=== PATIENT | female | born 1935 | race Caucasian/White ===

== ENCOUNTER 2017-06-27 05:02 | Inpatient (IN) | payer MEDICARE, OTHER ==
[~2017-06-27] VITALS: Ht 157.5 cm; Wt 86.8 kg
--- NOTE | ~2017-06-27 | HP ---
History And Physical [facility] [address] [place]. [address] NAME: MELVA MATOS : 35 STATUS : ADM IN [facility]#: [id number] AGE: 82 ADM/REG DATE : 06/27/17 MR#: [id number] REPORT SERV DATE: 06/27/17 DICTATED BY: GENESIS SHARMA DATE: 06/27/17 REPORT STATUS : Draft TRANSCRIBED BY: JAGDEEP DATE: 06/27/17 DATE OF ADMISSION: 06/27/2017 REASON FOR ADMISSION: COPD acute exacerbation and congestive heart failure, not relieved at [facility] on discharge in the last three to four days. HISTORY: This is an 82-year-old white female, who has been in this hospital a long time, was in [facility]. Family was dissatisfied with care at that facility and brought her to [facility] with complaint of pain in her mid and lower back early this morning. She also had some anterior abdominal pain at that time. She is followed by Dr. Harlan Hayes for an abdominal aortic aneurysm. Her blood pressure on arrival was 209/152. Clonidine was given and the pain has abated. She does have a history of shortness of breath as well and had congestive heart failure in the past. She stopped smoking cigarettes back in 1969, but she has had some problems with pulmonary edema since that time. She has had a decline in her performance scale is now become bedridden over the last six months or so. No longer ambulates, has a bedside commode. She has been hospitalized more than three times in the last six months for the congestive heart failure, COPD, or other problems related to this. She does have chronic pain in her lower extremities from her diabetic neuropathy and complains that the steroids make her blood sugar go up over 200. She comes to the emergency room because of the back pain and the abdominal pain. CT scan of the abdomen was negative and does not actually show an aneurysm there now. She did have malignant hypertension with blood pressure of 209/152 and had chest pain, back pain, and shortness of breath. The chest x-ray showed cardiomegaly, poor visualization of the retrocardiac region, mild basilar atelectasis, though the BNP was elevated 284.5. An arterial blood gas showed hypercarbia with a PaCO2 of 56, that appeared to be chronic. The Hospitalist Service consulted for admission to the hospital for sorting out of these multiple medical problems. PAST MEDICAL HISTORY: ALLERGIES: SHE HAS AN ALLERGY LIST LONG HER MEDICATION LIST. HER DAUGHTER SAYS SHE IS INTOLERANT OF MOST MEDICATIONS. WE DISCUSSED PAIN MEDICATION AND MORPHINE AND OXYCODONE HAVE CAUSED PROBLEMS IN THE PAST. FENTANYL PATCH IS NOT LISTED, BUT ALSO CAUSED SOME CONFUSION. SHE HAS BEEN ABLE TO TAKE SOME DILAUDID IN THE PAST, BUT MEPERIDINE, TORADOL, DARVOCET, AND OTHERS HAVE CAUSED PROBLEMS. SHE RELATES INTOLERANCE TO PENICILLINS WITH AMOXICILLIN CAUSING CHEST PAIN AND DIZZINESS, KEFLEX CAUSING SHORTNESS OF BREATH. AMPICILLIN CAUSING CHEST PAIN AND DIZZINESS. VANCOMYCIN CAUSE BODY REJECTION. CORTISONE CAUSED HER TO BE DISORIENTED, THOUGH SHE IS TOLERATING METHYLPREDNISOLONE DOSEPAK AT HOME NOW. History And Physical [address] [place]. [address] NAME: MELVA MATOS : 35 STATUS : ADM IN [facility]#: [id number] AGE: 82 ADM/REG DATE : 06/27/17 MR#: [id number] REPORT SERV DATE: 06/27/17 DICTATED BY: GENESIS SHARMA DATE: 06/27/17 REPORT STATUS : Draft TRANSCRIBED BY: JAGDEEP DATE: 06/27/17 MEDICATIONS: She is taking are Tylenol 350 mg one or two p.o. q.i.d. p.r.n., though her daughter says she can only tolerate small amounts and use takes that for fever not for pain; DuoNeb every six hours and p.r.n.; Eliquis 5 mg p.o. b.i.d. because of atrial fibrillation that is recurrent and Dr. Granados has been shocking her for this; Omnicef 300 mg b.i.d. for two days with therapy now have been completed in spite of her Keflex intolerance; clonidine 0.1 mg five times a day as needed for elevated blood pressure systolic over 169; diazepam 5 mg four times a day as needed for anxiety, she has been taking at least two a day since 1959; furosemide 20 to 40 mg p.o. b.i.d. p.r.n. swelling; Humalog by sliding scale; methylprednisolone 4 mg Dosepak continued to treat; metoprolol 50 mg p.o. b.i.d.; pantoprazole 40 mg p.o. daily; potassium 10 mEq p.o. b.i.d.; Crestor 20 mg p.o. at bedtime; and Ambien 5 mg at bedtime as needed as needed. SOCIAL HISTORY: She is . She was initially to an [employer] officer lived in [place], after a while, subsequently to a preacher, she for 50 years and is now , he was in [employer]. 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 She presently attends the [employer]. She is born in [place] and now lives in [place]. FAMILY HISTORY: She has five children, two of whom are with [place], boys are . She has a daughter who is a heavy cigarette user, she had cancer, was personal friends with Jason Hernandez. Has had heart disease and chronic kidney disease and continues to smoke cigarettes. She is the spokeswoman at the bedside with two other sisters, who live out of town. She had one brother, three sisters diabetes, heart disease, and lung disease ran in the family. REVIEW OF SYSTEMS: She has had no headache, eye pain, double vision. She has had no stroke. She has had no nausea, vomiting, diarrhea. She does have the abdominal pain, back pain, leg pain, and has had tremendous swelling of her lower extremities over the last several weeks. Much of her edema was removed during the hospitalization at [facility]. She complaint that she never saw doctor while she is in the hospital at [facility]. She has had no fits, seizures, convulsions, unilateral weakness, melena, hematemesis, fever, chills, or night sweats. She did have a chest pain that was a burning like pain radiating through to the back. The remainder of the review of systems is negative. PHYSICAL EXAMINATION: GENERAL: Morbidly obese white female, in no acute distress. VITAL SIGNS: Blood pressure initially was 209/159 and down to 54/84 with a heart rate of 88, respiratory rate 18, afebrile. HEENT: EOMI. Sclerae clear. Conjunctivae pink. NECK: No bruit without any JVD. CHEST: Rales at both bases, [facility] up bilaterally. HEART: Regular S1, S2 without murmur, gallop, or click. BREASTS: Grossly without mass. ABDOMEN: Grossly obese, nontender. Bowel sounds positive. There is no organomegaly. No landmarks can be felt. History And Physical [address] [place]. [address] NAME: MELVA MATOS : 35 STATUS : ADM IN [facility]#: [id number] AGE: 82 ADM/REG DATE : 06/27/17 MR#: [id number] REPORT SERV DATE: 06/27/17 DICTATED BY: GENESIS SHARMA DATE: 06/27/17 REPORT STATUS : Draft TRANSCRIBED BY: JAGDEEP DATE: 06/27/17 EXTREMITIES: Have trace edema. I do feel distal pulses, dorsalis pedis, and posterior tibial. NEUROLOGIC: She is anesthetic in her feet and feels like she can feel touching through shoes to the level of the knee. Motor is intact, but she has wasting of her muscles. EXTREMITIES: Knee joints are hypotrophic with some crepitus. No DTRs are listed with knees on either side. PSYCHIATRIC: She is alert, oriented to person, place, and time. She is calm and complacent with normal affect. SKIN: With ecchymoses of the arms and legs from previous phlebotomies sticks from hospitalization. LYMPHATICS: There is no adenopathy palpable. LABORATORY DATA: Arterial blood gas 7.39, 36, and 131 was done on 32% FiO2. White count 8.8, hemoglobin 12.1, hematocrit 39.3, platelets were 183, MCV was 87. Lactate level 0.8. The comprehensive metabolic profile showed a sodium 137, potassium 4.7, creatinine was 0.93, BUN 30, CO2 of 32, glucose was 227. Albumin was 2.9. Troponin 0.05. Lipase 277. BNP was 284.5. CT scan of the abdomen and pelvis showed cardiomegaly, basilar atelectasis, small pleural effusions, question pneumonia, diverticulosis, prior hysterectomy. No evidence of intestinal obstruction. ASSESSMENT: 1. Congestive heart failure, acute exacerbation. She does have rales bilaterally. Chest x-ray does not show pulmonary edema. However, her BNP is elevated slightly. I suspect increasing Lasix dose would be reasonable at this point and continue to watch. 2. Chronic obstructive pulmonary disease with acute exacerbation. She does have some hypercarbic respiratory failure likely chronic, exacerbated by the congestive heart failure early this morning. 3. Presence of permanent pacemaker. 4. Possible atherosclerotic cardiovascular disease. We will repeat the troponin level. 5. 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 6. Said to have an abdominal aortic aneurysm. The CT scan of the abdomen does not show this, I want to consult Dr. Hayes to help sort this out and is suggestion for treatment of the family had understood. 7. Obesity. 8. Ecchymosis. 9. Chronic anxiety since 1959 on Valium. 10.Multiple "allergies.". 11.Hypertension, malignant. I believe we will need to add medication rather than just taking a p.r.n. clonidine, though she is allergic or intolerant to so many medications or maybe just anxious about potential side effects. She is not able to take many medications. 12.Neuropathy. She is having some pain now and because of the statistical evidence of 50% one year mortality with more 3 hospitalizations last six months. She may qualify for hospice. I discussed end-of-life care with the family. She wants to be fully coated and placed on artificial life support if necessary even is declining state. She has had a drop in her physical performance over the last six months, now been bedridden nearly totally with bedside commode. Any consideration for knee joint placement for History And Physical [address] [place]. 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 With the decline in performance some evidence of protein calorie malnutrition with an albumin down at 2.9. Her chronic conditions of congestive heart failure, COPD, and malignant hypertension. These together would likely give her life expectancy less than or equal to six months and qualify for hospice care at home. Daughter says that she will speak to her sister's about this and considering this I will go ahead and feel to more comfort measures that have been attended in the past and start her on some oral Dilaudid to half a dose 2 mg every six hours p.r.n. If she has not tolerated a quarter of a pill at 1 mg may be sufficient to keep the patient comfortable and allow hospice to administer to her in the home. I will defer the final decision on this two. The primary care physician, Dr. Montes at [facility] and two physicians who have known her longer in the past such as Dr. Hayes and Dr. Casper Granados, and Dr. Wolfgang Fisher. DB/MODL Genesis Sharma M.D. / [id number] CC: Dr. Angel Montes,Mela Manjarrez M.D. Michael C Allan, M.D.
--- NOTE | ~2017-06-27 | DS ---
Discharge Summary [facility] [address] [place]. [address] NAME: MELVA MATOS : 35 STATUS : DIS IN PAT#: [id number] AGE: 82 ADM/REG DATE : 06/27/17 MR#: [id number] REPORT SERV DATE: 06/29/17 DICTATED BY: HUGO MCCAULEY DATE: 06/29/17 REPORT STATUS : Draft TRANSCRIBED BY: MODL DATE: 06/29/17 ADMISSION DATE: 06/27/2017 DISCHARGE DATE: 06/29/2017 DISCHARGE DIAGNOSES: 1. Acute chronic obstructive pulmonary disease exacerbation. 2. Generalized weakness. 3. Initial suspicion for systolic and diastolic congestive heart failure exacerbation, ruled out. 4. Hypertension. 5. Generalized abdominal and chest pains. CONSULTANTS: None. PROCEDURES: None. HOSPITAL COURSE: This is an 82-year-old lady with history of oxygen-dependent COPD, who was admitted to the hospital with COPD and CHF exacerbation. For details, please refer to excellent H and P dictated by Dr. Aaron Griffith. In summary, the patient was admitted and was treated with Lasix diuresis as well as steroids and oxygen support and bronchodilator therapies. By the second day of the hospital stay, the patient was actually back to back to 3 liters of oxygen requirement, which is her home dose. The patient was still complaining of significant fatigue and shortness of breath. By the third day of the hospital stay, the patient's breathing had returned to her baseline. The patient was actually requiring only 2 liters of oxygen to maintain adequate oxygen saturations, which is better than her baseline. In the meantime, the patient's echocardiogram did come back and the echocardiogram showed a normal ejection fraction of 55% with only mild diastolic dysfunction. Based on how she responded to Lasix, which she has not put out all that much, it is likely that the patient suffered more from COPD exacerbation and not a congestive heart failure exacerbation. Of note, the patient was seen to be extremely weak and frail. The patient was recommended getting evaluated for possible [facility]dc facility transfer, however, the patient was adamantly against it. The patient is a retired nurse and she was not open to going anywhere, but home. The patient was still open to home health and she was actually open to consulting with hospice if she did not do well at home. I felt that that was a reasonable decision. The patient is now being discharged home with home health and close outpatient followup plans. DISPOSITION: Home with home health. FOLLOWUP: Please follow up with PCP in the next one to two weeks. DISCHARGE MEDICATIONS: No changes except for a Medrol Dosepak. Also, note as the patient was running low on her prescriptions, the patient was given prescriptions for all of her existing home medications. The patient is in between PCPs and she was also given a list of PCPs that she can follow up with. Discharge Summary [facility] [address] [place]. [address] NAME: MELVA MATOS : 35 STATUS : DIS IN PAT#: [id number] AGE: 82 ADM/REG DATE : 06/27/17 MR#: [id number] REPORT SERV DATE: 06/29/17 DICTATED BY: HUGO CMCAULEY DATE: 06/29/17 REPORT STATUS : Draft TRANSCRIBED BY: JAGDEEP DATE: 06/29/17 A total of 45 minutes spent in coordinating this patient's discharge today. HANK/JAGDEEP Hugo Mccauley MD / [id number] CC: MD ROSMERY Rapp JUSTIN AARON
[~2017-06-27 05:02] MED LIST: CAT1 PO; CLONIDINE; ELIQUIS 5 MG TAB5 MG PO; HUMALOG SC; LOP50 PO; METOPROLOL; NITROPATCH; PROTONIX; PROTONIX PO; T PO; V5 PO; VALIUM
[2017-06-27 05:42] LABS: ALLENS TEST Pos; BE (BASE EXCESS) 6.7 MEQ/L (0 +/- 2.5); CARBOXYHEMOGLOBIN 1.1 % (0-3); DEVICE NC; HCO3 (ACTUAL BICARBONATE) 33.2 MEQ/L (23-27); HEMOBLOGIN CONTENT 12.7 G/DL (12-16); INSTRUMENT SERIAL # 8087; METHEMOGLOBIN 0.2 % (0-3); O2 CONTENT 17.5 VOL% (18-24); OPERATOR ID 33449; PCO2 (CO2 TENSION) 56 MMHG (35-45); PO2 (O2 TENSION) 131 MMHG (79-93); SAMPLE Arterial; pH 7.39 (7.37-7.43)
[2017-06-27 06:58] LABS: BASOPHILS 0.2 %; BASOPHILS ABSOLUTE 0.02 10/3/uL (0.0-0.16); EOSINOPHILS 1.5 %; EOSINOPHILS ABSOLUTE 0.13 10/3/uL (0.0-0.53); HEMATOCRIT 39.3 % (36.0-48.0); HEMOGLOBIN 12.1 g/dL (12.0-16.0); IMMATURE GRANULOCYTES 0.2 %; IMMATURE GRANULOCYTES ABSOLUTE 0.02 10/3/uL (0.0-0.11); LYMPHOCYTES 19.3 %; MEAN CORPUSCULAR VOLUME 87.3 fL (80-100); MEAN PLATELET VOLUME 10.7 fL (9.2-13.0); MONOCYTES ABSOLUTE 0.97 10/3/uL (0.21-1.20); NEUTROPHILS 67.8 %; NEUTROPHILS ABSOLUTE 5.98 10/3/uL (2.02-8.40); PLATELET COUNT 183 10/3/uL (150-400); RBC DISTRIBUTION WIDTH 13.6 % (12.0-16.0); WHITE BLOOD CELLS 8.8 10/3/uL (4.5-10.5)
[2017-06-27 07:01] LABS: MANUAL DIFF NO %; MEAN CORPUS HGB CONC 30.8 g/dL (32.0-36.0); MEAN CORPUSCULAR HEMOGLOB 26.9 pg (26.0-34.0)
[2017-06-27 07:17] LABS: A/G RATIO 0.7 (0.7-1.9); ALBUMIN 2.9 G/DL (3.5-5.0); ALKALINE PHOSPHATASE 83 U/L (45-117); CALCIUM, SERUM 8.6 MG/DL (8.5-10.4); CHLORIDE, SERUM 99 MMOL/L (96-112); CREATININE 0.93 MG/DL (0.55-1.02); DIRECT BILIRUBIN 0.2 MG/DL (0.0-0.4); GFR AFRICAN AMERICAN 66 ML/MIN (>=60); GFR NON AFRICAN AMERICAN 57 ML/MIN (>=60); GLOBULIN 4.1 G/DL (2.5-4.1); INDIRECT BILIRUBIN(NOT ORDER) 0.5 MG/DL (0.1-0.9); POTASSIUM, SERUM 4.1 MMOL/L (3.5-5.3); SGOT(AST) 44 U/L (5-40); SGPT(ALT) 39 U/L (5-65); SODIUM, SERUM 137 MMOL/L (135-148); TOTAL BILIRUBIN 0.7 MG/DL (0-1.2)
[2017-06-27 07:18] LABS: BUN (BLOOD UREA NITROGEN) 30 MG/DL (6-23); CO2 (CARBON DIOXIDE) 32 MMOL/L (24-34); GLUCOSE, SERUM 227 MG/DL (60-99); TROPONIN I 0.05 NG/ML (<0.05)
[2017-06-27 07:18] LABS: LACTATE 0.8 MMOL/L (0.3-2.4)
[2017-06-27] MEDS ORDERED: DUONEB INH (07:41)
[2017-06-27] MEDS ORDERED: OMNICEF300 PO (07:41)
[2017-06-27] MEDS ORDERED: MEDROLPAK4 PO (07:42)
[2017-06-27] MEDS ORDERED: L20 PO (07:43)
[2017-06-27] MEDS ORDERED: CAT1 PO (07:44)
[2017-06-27] MEDS ORDERED: V5 PO (07:46)
[2017-06-27] MEDS ORDERED: CRESTOR20 MG PO (07:48)
[2017-06-27] MEDS ORDERED: ELIQUIS 5 MG TAB5 MG PO (07:48)
[2017-06-27] MEDS ORDERED: AMB5 PO (07:48)
[2017-06-27] MEDS ORDERED: LOP50 PO (07:48)
[2017-06-27] MEDS ORDERED: PROTONIX PO (07:49)
[2017-06-27] MEDS ORDERED: KLOR-CON 1010 MEQ PO (07:49)
[2017-06-27] MEDS ORDERED: HUMALOGPEN SC (07:50)
[2017-06-27] MEDS ORDERED: T PO (07:51)
[2017-06-28 08:49] LABS: CHLORIDE, SERUM 95 MMOL/L (96-112); CO2 (CARBON DIOXIDE) 34 MMOL/L (24-34); CREATININE 0.88 MG/DL (0.55-1.02); GFR AFRICAN AMERICAN 71 ML/MIN (>=60); GFR NON AFRICAN AMERICAN 61 ML/MIN (>=60); GLUCOSE, SERUM 249 MG/DL (60-99); SODIUM, SERUM 133 MMOL/L (135-148); TROPONIN I 0.04 NG/ML (<0.05)
[2017-06-28 08:52] LABS: BUN (BLOOD UREA NITROGEN) 26 MG/DL (6-23)
[2017-06-28 08:53] LABS: BASOPHILS 0 %; EOSINOPHILS 0 %; HEMATOCRIT 36.6 % (36.0-48.0); HEMOGLOBIN 11.6 g/dL (12.0-16.0); IMMATURE GRANULOCYTES 0.3 %; IMMATURE GRANULOCYTES ABSOLUTE 0.03 10/3/uL (0.0-0.11); LYMPHOCYTES 12.8 %; MEAN CORPUS HGB CONC 31.7 g/dL (32.0-36.0); MEAN CORPUSCULAR HEMOGLOB 26.7 pg (26.0-34.0); MEAN PLATELET VOLUME 11.3 fL (9.2-13.0); MONOCYTES 7.6 %; MONOCYTES ABSOLUTE 0.71 10/3/uL (0.21-1.20); NEUTROPHILS 79.3 %; NEUTROPHILS ABSOLUTE 7.44 10/3/uL (2.02-8.40); PLATELET COUNT 194 10/3/uL (150-400); RBC DISTRIBUTION WIDTH 13.6 % (12.0-16.0); RED CELL COUNT 4.35 10/6/uL (4.0-5.6); WHITE BLOOD CELLS 9.4 10/3/uL (4.5-10.5)
[2017-06-28 08:54] LABS: MANUAL DIFF NO %; MEAN CORPUSCULAR VOLUME 84.1 fL (80-100)
[2017-06-29 09:29] LABS: BASOPHILS 0 %; EOSINOPHILS 0.5 %; EOSINOPHILS ABSOLUTE 0.05 10/3/uL (0.0-0.53); HEMATOCRIT 37.3 % (36.0-48.0); HEMOGLOBIN 11.7 g/dL (12.0-16.0); IMMATURE GRANULOCYTES 0.3 %; IMMATURE GRANULOCYTES ABSOLUTE 0.03 10/3/uL (0.0-0.11); LYMPHOCYTES 23.9 %; LYMPHOCYTES ABSOLUTE 2.48 10/3/uL (0.67-4.30); MEAN CORPUS HGB CONC 31.4 g/dL (32.0-36.0); MEAN CORPUSCULAR HEMOGLOB 26.6 pg (26.0-34.0); MEAN CORPUSCULAR VOLUME 84.8 fL (80-100); MEAN PLATELET VOLUME 10.4 fL (9.2-13.0); MONOCYTES 9.2 %; MONOCYTES ABSOLUTE 0.95 10/3/uL (0.21-1.20); NEUTROPHILS 66.1 %; NEUTROPHILS ABSOLUTE 6.86 10/3/uL (2.02-8.40); PLATELET COUNT 186 10/3/uL (150-400); RBC DISTRIBUTION WIDTH 13.9 % (12.0-16.0); WHITE BLOOD CELLS 10.4 10/3/uL (4.5-10.5)
[2017-06-29 09:30] LABS: MANUAL DIFF NO %
[2017-06-29 09:46] LABS: CALCIUM, SERUM 9.2 MG/DL (8.5-10.4); CHLORIDE, SERUM 97 MMOL/L (96-112); CO2 (CARBON DIOXIDE) 33 MMOL/L (24-34); CREATININE 0.92 MG/DL (0.55-1.02); GFR AFRICAN AMERICAN 67 ML/MIN (>=60); GFR NON AFRICAN AMERICAN 58 ML/MIN (>=60); GLUCOSE, SERUM 228 MG/DL (60-99); POTASSIUM, SERUM 4.5 MMOL/L (3.5-5.3); SODIUM, SERUM 137 MMOL/L (135-148)
[2017-06-29 09:48] LABS: BUN (BLOOD UREA NITROGEN) 30 MG/DL (6-23)
[2017-06-29] MEDS ORDERED: MEDROLPAK4 PO (14:02)
[2017-06-29] MEDS ORDERED: DUONEB INH (14:03)
== END 2017-06-29 19:14 | disposition home health service (06) | DRG 190 ==
LOC: ER 05:02 → 6NO 10:11
PROVIDERS: Internal Medicine; Specialist
DX: J44.1 Chronic obstructive pulmonary disease with (acute) exacerbation (principal); J96.22 Acute and chronic respiratory failure with hypercapnia; E46 Unspecified protein-calorie malnutrition; E11.65 Type 2 diabetes mellitus with hyperglycemia; E11.40 Type 2 diabetes mellitus with diabetic neuropathy, unspecified; I10 Essential (primary) hypertension; T38.0X5A Adverse effect of glucocorticoids and synthetic analogues, initial encounter; E66.01 Morbid (severe) obesity due to excess calories; I73.9 Peripheral vascular disease, unspecified; F41.9 Anxiety disorder, unspecified; Z95.810 Presence of automatic (implantable) cardiac defibrillator; Z95.828 Presence of other vascular implants and grafts; Z68.35 Body mass index [BMI] 35.0-35.9, adult
CPT/HCPCS: 36600; 71010; 74176; 80048; 80053; 81001; 82248; 82805; 82962; 83605; 83690; 83880; 84484; 85025; 87040; 87070; 87205; 93005; 93306; 94640; 96374; 99285; A9270-GY; J2930